=== PATIENT | female | born 1965 | race Caucasian/White ===

== ENCOUNTER 2017-10-11 12:07 | Emergency (ER) | payer BC ==
[2017-10-11 13:53] VITALS: BP 126/73
[2017-10-11] MEDS ORDERED: BSS OPTH.SOL* BTL OPHTHALMIC ONE (14:01)
[2017-10-11] MEDS ORDERED: Fluorescein Sodium TOPICAL* 1 MG TEST OPHTHALMIC ONE (14:01)
[2017-10-11] MEDS ORDERED: Fluorescein Sod TOPICAL 0.6* 0.6 MG TEST OPHTHALMIC ONE (14:04)
--- NOTE | 2017-10-11 14:14 | UC ---
Eye Complaint HPI - HPI Summary HPI Summary: grandson with viral conjunctivitis, and she has a history of dry eye--yesterday eye became irritated with slight erythema and "goopy drainage"--is leaving for vacation and wants to get it checked - History of Current Complaint Chief Complaint: UCEye Stated Complaint: LEFT EYE COMPLAINT Time Seen by Provider: 10/11/17 13:55 Hx Obtained From: Patient ?: No Onset/Duration: Sudden Onset Timing: Constant Severity Initially: Mild Pain Intensity: 0 Location of Injury: Conjunctiva Aggravating Factor(s): Nothing Alleviating Factor(s): Nothing Associated Signs And Symptoms: Positive: Drainage (Clear) - Allergies/Home Medications Allergies/Adverse Reactions: Allergies Allergy/AdvReac Type Severity Reaction Status Date / Time No Known Allergies Allergy Verified 10/11/17 13:45 Home Medications: Home Medications Cholecalciferol TAB* [Vitamin D TAB*] 1,000 unit PO DAILY 10/11/17 [History Confirmed 10/11/17] Dry Eye Drops 1 drop BOTH EYES DAILY 10/11/17 [History] Mineral Oil/Petrolatum,White [Refresh P.m. Ointment] 3.5 gm OP BEDTIME 10/11/17 [History Confirmed 10/11/17] Multivitamin [Multivitamins] 1 cap PO DAILY 10/11/17 [History Confirmed 10/11/17 ] PMH/Surg Hx/FS Hx/Imm Hx Previously Healthy: Yes - Surgical History Surgical History: Yes Surgery Procedure, Year, and Place: CYST REMOVED FROM NECK - Family History Known Family History: Positive: None - Social History Occupation: Employed Full-time Lives: With Family Alcohol Use: Occasionally Substance Use Type: None Smoking Status (MU): Never Smoked Tobacco Review of Systems Constitutional: Negative Skin: Negative Eyes: Negative, Drainage - left eye clear drainage, Eye Redness - minimal ENT: Negative Respiratory: Negative Cardiovascular: Negative Gastrointestinal: Negative Genitourinary: Negative Motor: Negative Neurovascular: Negative Musculoskeletal: Negative Neurological: Negative Psychological: Negative Is Patient Immunocompromised?: No All Other Systems Reviewed And Are Negative: Yes Physical Exam Triage Information Reviewed: Yes Appearance: Well-Appearing, No Pain Distress, Well-Nourished Vital Signs: Initial Vital Signs Temp 98.1 F 10/11/17 13:48 Pulse 75 10/11/17 13:48 Resp 16 10/11/17 13:48 BP 126/73 10/11/17 13:48 Pulse Ox 100 10/11/17 13:48 Vital Signs Reviewed: Yes Eye Exam: Normal Eyes: Positive: Conjunctiva Inflamed - minimal red, Discharge - scant clear ENT Exam: Normal ENT: Positive: Normal ENT inspection, Hearing grossly normal. Negative: Nasal congestion, Tonsillar swelling, Tonsillar exudate, Trismus, Muffled voice, Hoarse voice, Dental tenderness Dental Exam: Normal Neck exam: Normal Neck: Positive: Supple, Nontender Respiratory Exam: Normal Respiratory: Positive: Chest non-tender, No respiratory distress, No accessory muscle use Cardiovascular Exam: Normal Cardiovascular: Positive: RRR, Pulses Normal, Brisk Capillary Refill Musculoskeletal Exam: Normal Musculoskeletal: Positive: Strength Intact, ROM Intact, No Edema Neurological Exam: Normal Neurological: Positive: Alert, Muscle Tone Normal Psychological Exam: Normal Skin Exam: Normal Diagnostics - Laboratory Diagnostic Studies Completed/Ordered: eye stained-no dye uptake (to assure no abrasion or ulceration)as patient did use contacts prior to dryness started this week Eye Complaint Course/Dx - Course Course Of Treatment: no contact lens--polytrim eye drops --use usual medication for dry eye - Differential Dx/Diagnosis Provider Diagnoses: chronic dry eye os irratation Discharge - Discharge Plan Condition: Stable Disposition: HOME Prescriptions: Polymyx/Trimethoprim OPTH* [Polytrim OPHTH*] 1 drop LEFT EYE Q4H #1 btl Patient Education Materials: Conjunctivitis (ED) Referrals: Ruma Avila PA [Primary Care Provider] - If Needed
== END 2017-10-11 14:23 | disposition home or self-care (01) ==
LOC: UCCORT 12:07
DX: H04.122 Dry eye syndrome of left lacrimal gland (principal); H57.8 Other specified disorders of eye and adnexa
CPT/HCPCS: 99212; A9270-GY; G0463

== ENCOUNTER 2017-10-29 14:27 | Emergency (ER) | payer BC ==
[2017-10-29 14:49] VITALS: BP 102/72
--- NOTE | 2017-10-29 14:53 | UC ---
Complaint Female HPI - HPI Summary HPI Summary: Pt c/o sudden onset of urinary frequency, urgency and dysuria X 3 days. Pt took OTC azo this morning at 0900 - History Of Current Complaint Chief Complaint: UCGU Stated Complaint: URINARY COMPLAINT Time Seen by Provider: 10/29/17 14:46 Hx Obtained From: Patient ?: No Onset/Duration: Sudden Onset, Lasting Days, Still Present Timing: Constant Severity Initially: Mild Severity Currently: Mild Pain Intensity: 0 Character: Dull, Burning Aggravating Factor(s): Urination Alleviating Factor(s): Nothing Associated Signs And Symptoms: Positive: Negative - Allergies/Home Medications Allergies/Adverse Reactions: Allergies Allergy/AdvReac Type Severity Reaction Status Date / Time No Known Allergies Allergy Verified 10/29/17 14:47 Home Medications: Home Medications Cetirizine* [ZyrTEC 10 MG TAB*] 10 mg PO DAILY 10/29/17 [History Confirmed 10/29] PMH/Surg Hx/FS Hx/Imm Hx Previously Healthy: Yes - Surgical History Surgical History: Yes Surgery Procedure, Year, and Place: CYST REMOVED FROM NECK - Family History Known Family History: Positive: Cardiac Disease - Social History Occupation: Employed Full-time Lives: With Family Alcohol Use: Occasionally Substance Use Type: None Smoking Status (MU): Never Smoked Tobacco Have You Smoked in the Last Year: No Review of Systems Constitutional: Negative Skin: Negative Eyes: Negative ENT: Negative Respiratory: Negative Cardiovascular: Negative Gastrointestinal: Negative Genitourinary: Dysuria, Frequency, Urgency Motor: Negative Neurovascular: Negative Musculoskeletal: Negative Neurological: Negative Psychological: Negative Is Patient Immunocompromised?: No All Other Systems Reviewed And Are Negative: Yes Physical Exam Triage Information Reviewed: Yes Appearance: Well-Appearing Vital Signs: Initial Vital Signs Temp 98 F 10/29/17 14:45 Pulse 62 10/29/17 14:45 Resp 16 10/29/17 14:45 BP 102/72 10/29/17 14:45 Pulse Ox 98 10/29/17 14:45 Vital Signs Reviewed: Yes Eye Exam: Normal ENT Exam: Normal Dental Exam: Normal Neck exam: Normal Respiratory Exam: Normal Cardiovascular Exam: Normal Abdominal Exam: Normal Musculoskeletal Exam: Normal Neurological Exam: Normal Psychological Exam: Normal Skin Exam: Normal Complaint Female Dx - Course Course Of Treatment: Pt took AZO, unable to do UA. Urine sent for culture - Differential Dx/Diagnosis Differential Diagnosis/HQI/PQRI: Urinary Tract Infection Provider Diagnoses: Dysuria Discharge - Discharge Plan Condition: Stable Disposition: HOME Prescriptions: Cephalexin CAP* [Keflex 500 CAP*] 500 mg PO TID #21 cap Patient Education Materials: Dysuria (ED) Referrals: Ruma Avila PA [Primary Care Provider] - If Needed
== END 2017-10-29 15:04 | disposition home or self-care (01) ==
LOC: UCCORT 14:27
DX: R30.0 Dysuria (principal)
CPT/HCPCS: 87077; 87086; 87186; 99212; G0463

== ENCOUNTER 2017-11-27 18:02 | Emergency (ER) | payer BC ==
--- NOTE | 2017-11-27 18:40 | UC ---
Throat Pain/Nasal Rafita HPI - HPI Summary HPI Summary: 51 year old female with sore throat. ONSET YESTERDAY CHILLS, FEVERISH, SORE THROAT, VOMITING. Had bodyaches start yesterday at school at 1330 and they have continued. no SOB. no CP. [ End ] - History of Current Complaint Stated Complaint: SORE THROAT/FEVER Time Seen by Provider: 11/27/17 18:36 Hx Obtained From: Patient Onset/Duration: Sudden Onset Cough: Nonproductive - Allergies/Home Medications Allergies/Adverse Reactions: Allergies Allergy/AdvReac Type Severity Reaction Status Date / Time No Known Allergies Allergy Verified 11/27/17 18:41 Home Medications: Home Medications Acetaminophen [Tylenol Extra Strength] 1,000 mg PO Q6H PRN 11/27/17 [History Confirmed 11/27/17] PMH/Surg Hx/FS Hx/Imm Hx Previously Healthy: Yes - Surgical History Surgical History: Yes Surgery Procedure, Year, and Place: CYST REMOVED FROM NECK - Family History Known Family History: Positive: Cardiac Disease - Social History Occupation: Employed Full-time - teacher Alcohol Use: Occasionally Substance Use Type: None Smoking Status (MU): Never Smoked Tobacco Have You Smoked in the Last Year: No Review of Systems Constitutional: Fever, Chills, Fatigue ENT: Sore Throat Musculoskeletal: Myalgia Is Patient Immunocompromised?: No All Other Systems Reviewed And Are Negative: Yes Physical Exam Triage Information Reviewed: Yes Appearance: Well-Appearing, No Pain Distress, Well-Nourished Vital Signs Reviewed: Yes Eye Exam: Normal ENT Exam: Normal Dental Exam: Normal Neck exam: Normal Neck: Positive: 1 Respiratory Exam: Normal Cardiovascular Exam: Normal Musculoskeletal Exam: Normal Neurological Exam: Normal Psychological Exam: Normal Skin Exam: Normal Throat Pain/Nasal Course/Dx - Course Course Of Treatment: neg flu. viral illness. supportive treatment - Differential Dx/Diagnosis Differential Diagnosis/HQI/PQRI: Laryngitis, Peritonsillar Abscess, Pharyngitis , Sinusitis, Tonsillitis Provider Diagnoses: flu like illness Discharge - Sign-Out/Discharge Documenting (check all that apply): Discharge - Discharge Plan Condition: Good Disposition: HOME Patient Education Materials: Upper Respiratory Infection (ED) Referrals: Ruma Avila PA [Primary Care Provider] - 4 Days Additional Instructions: You had a negative flu test today . Feel better! - Billing Disposition and Condition Condition: GOOD Disposition: HOME
[2017-11-27 18:48] VITALS: BP 97/63
== END 2017-11-27 19:32 | disposition home or self-care (01) ==
LOC: UCCORT 18:02
DX: J11.1 Influenza due to unidentified influenza virus with other respiratory manifestations (principal)
CPT/HCPCS: 87502; 99211; G0463

== ENCOUNTER 2017-11-29 09:24 | Emergency (ER) | payer BC ==
[2017-11-29 10:11] VITALS: BP 109/76
--- NOTE | 2017-11-29 10:26 | UC ---
Respiratory Complaint HPI - HPI Summary HPI Summary: 52 year old female with sore throat, vomiting and flu like illness. SEEN HERE FRIDAY NIKKI , FOR URI, NEGATIVE FLU. NEXT DAY SORE THROAT AND VOMITING STARTED. NOT ABLE TO KEEP FLUIDS DOWN. DID TOLERATE A GLASS OF WATER AND POPSICLE THIS MORNING WITH OUT VOMITING. NO FEVER SHE IS AWARE OF RECENTLY. NO DIARRHEA. FEELS WEAK AND LIGHTHEADED. [ End ] - History of Current Complaint Chief Complaint: UCGeneralIllness Stated Complaint: ST,VOMITING Time Seen by Provider: 11/29/17 10:24 Hx Obtained From: Patient, Family/Obgyn Specialist Onset/Duration: Gradual Onset Timing: Constant Severity Currently: Moderate Pain Intensity: 8 Character: Cough: Nonproductive Associated Signs And Symptoms: Positive: Dizziness, Nasal Congestion - Allergies/Home Medications Allergies/Adverse Reactions: Allergies Allergy/AdvReac Type Severity Reaction Status Date / Time No Known Allergies Allergy Verified 11/29/17 10:01 Home Medications: Home Medications Erythromycin OPTH OINT* [Erythromycin 0.5% OPTH OINT*] 1 applic LEFT EYE TID 03/11 [History Confirmed 11/29/17] PMH/Surg Hx/FS Hx/Imm Hx Previously Healthy: Yes Endocrine History: Dyslipidemia - Surgical History Surgical History: Yes Surgery Procedure, Year, and Place: CYST REMOVED FROM NECK - Family History Known Family History: Positive: None, Cardiac Disease - Social 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 Alcohol Use: Occasionally Substance Use Type: None Smoking Status (MU): Never Smoked Tobacco Have You Smoked in the Last Year: No Review of Systems Constitutional: Fever, Chills, Fatigue ENT: Sore Throat Gastrointestinal: Nausea Musculoskeletal: Myalgia Is Patient Immunocompromised?: No All Other Systems Reviewed And Are Negative: Yes Physical Exam Triage Information Reviewed: Yes Appearance: Well-Appearing, No Pain Distress, Well-Nourished Vital Signs: Initial Vital Signs Temp 98.4 F 11/29/17 10:03 Pulse 69 11/29/17 10:03 Resp 16 11/29/17 10:03 BP 109/76 11/29/17 10:03 Pulse Ox 99 11/29/17 10:03 Vital Signs Reviewed: Yes Eye Exam: Normal ENT Exam: Normal ENT: Positive: Pharyngeal erythema, Nasal congestion, TM dull, Tonsillar exudate , Hoarse voice Dental Exam: Normal Neck exam: Normal Neck: Positive: 1 Respiratory Exam: Normal Cardiovascular Exam: Normal Musculoskeletal Exam: Normal Neurological Exam: Normal Psychological Exam: Normal Skin Exam: Normal UC Diagnostic Evaluation - Laboratory O2 Sat by Pulse Oximetry: 99 Respiratory Course/Dx - Course Course Of Treatment: asked for liquid amox. anti nausea meds given here and to go home with. change toothbrush. push fluids. to go to ED if Sx persist or worsen for hydration. patient and aware and agree to plan - Differential Dx/Diagnosis Differential Diagnosis/HQI/PQRI: Bronchitis, Influenza, Laryngitis, Lower Resp Infection, Sinusitis Provider Diagnoses: Strep throat Discharge - Sign-Out/Discharge Documenting (check all that apply): Discharge - Discharge Plan Condition: Good Disposition: HOME Prescriptions: Amoxicillin PO (*) [Amoxicillin 400 MG/5 ML SUSP*] 500 mg PO BID 10 Days #1 bottle Ondansetron ODT TAB* [Zofran 4 MG Odt TAB*] 4 mg PO Q6H PRN 10 Days #20 tab.odt PRN Reason: Nausea Patient Education Materials: Strep Throat (ED) Forms: *Work Release Referrals: Ruma Avila PA [Primary Care Provider] - 4 Days Additional Instructions: You are to use Amoxicillin liquid at this time for your (+) strep testing and also you are given an anti-nausea medication . - Billing Disposition and Condition Condition: GOOD Disposition: HOME
[2017-11-29] MEDS ORDERED: Ondansetron ODT TAB* 4 MG PO ONE (10:28)
== END 2017-11-29 10:51 | disposition home or self-care (01) ==
LOC: UCCORT 09:24
DX: J02.0 Streptococcal pharyngitis (principal)
CPT/HCPCS: 87651; 99212; A9270-GY; G0463

== ENCOUNTER 2018-04-19 15:36 | Emergency (ER) | payer BC ==
[2018-04-19 17:08] VITALS: BP 103/72
[2018-04-19] MEDS ORDERED: Nitrofurantoin Macrocrystals* 50 MG CAP PO ONE (17:54)
--- NOTE | 2018-04-19 18:01 | UC ---
Complaint Female HPI - HPI Summary HPI Summary: 52 year old female presents with 2 day history of dysuria and frequency. Denies fever, chills, back/flank pain, abdominal pain, nausea, vomiting, or vaginal discharge/bleeding. Taking OTC Azo for symptom relief. - History Of Current Complaint Chief Complaint: UCGU Stated Complaint: UTI SYMPTOMS Time Seen by Provider: 04/19/18 17:32 Hx Obtained From: Patient Onset/Duration: Gradual Onset, Lasting Days - 2 Timing: Intermittent Severity Initially: Mild Severity Currently: Mild Pain Intensity: 0 Character: Burning Aggravating Factor(s): Urination Alleviating Factor(s): Meds Associated Signs And Symptoms: Positive: Negative - Allergies/Home Medications Allergies/Adverse Reactions: Allergies Allergy/AdvReac Type Severity Reaction Status Date / Time No Known Allergies Allergy Verified 04/19/18 17:07 Home Medications: Home Medications Azo Urinary Pain Relief 2 tab DAILY PRN 04/19/18 [History Confirmed 04/19/18] PMH/Surg Hx/FS Hx/Imm Hx - Additional Past Medical History Additional PMH: noncontributory - Surgical History Surgical History: Yes Surgery Procedure, Year, and Place: CYST REMOVED FROM NECK - Family History Known Family History: Positive: Cardiac Disease - Social History Occupation: Employed Full-time Lives: With Family Alcohol Use: Occasionally Alcohol Amount: ONCE A MONTH Substance Use Type: None Smoking Status (MU): Never Smoked Tobacco Have You Smoked in the Last Year: No Review of Systems Constitutional: Negative Gastrointestinal: Negative Genitourinary: Dysuria, Frequency Is Patient Immunocompromised?: No All Other Systems Reviewed And Are Negative: Yes Physical Exam Triage Information Reviewed: Yes Appearance: Well-Appearing, No Pain Distress, Well-Nourished Vital Signs: Initial Vital Signs Temp 98.8 F 04/19/18 17:01 Pulse 72 04/19/18 17:01 Resp 16 04/19/18 17:01 BP 103/72 04/19/18 17:01 Pulse Ox 100 04/19/18 17:01 Vital Signs Reviewed: Yes Respiratory: Positive: Lungs clear, Normal breath sounds, No respiratory distress Cardiovascular: Positive: RRR, No Murmur Abdomen Description: Positive: Nontender, No Organomegaly, Soft. Negative: CVA Tenderness (R), CVA Tenderness (L) Neurological: Positive: Alert Skin Exam: Normal Complaint Female Dx - Course Course Of Treatment: 52 year old female with 2 day history of symptoms consistent with UTI. She has been self-treating with OTC Azo therefore was unable to perform POC UA. Will treat empirically with Bactrim DS 1 tab BID x 5 days pending urine culture results. She has been instructed to stop Azo after 2 days on antibiotics. - Differential Dx/Diagnosis Provider Diagnoses: acute urinary cystits Discharge - Sign-Out/Discharge Documenting (check all that apply): Patient Departure All imaging exams completed and their final reports reviewed: No Studies - Discharge Plan Condition: Stable Disposition: HOME Prescriptions: Sulfamethox/Trimethoprim DS* [Bactrim DS 800/160 TAB*] 1 tab PO BID #9 tab Patient Education Materials: Urinary Tract Infection in Women (ED) Referrals: Ruma Avila PA [Primary Care Provider] - If Needed Additional Instructions: Your symptoms are suspicious for a urinary tract infection. We were unable to test the urine because of the Azo however we will start your on an antibiotic and send the urine for culture. We will contact you in 2-3 days if there is a need to change your treatment. You were given a dose of Bactrim DS 1 tab in the clinic and a prescription for Bactrim DS 1 tab orally twice daily for 5 days was sent to the pharmacy to start tomorrow. You may continue to use the Azo for 2 more days then stop. Your symptoms should be better after being on the antibiotic for 48-72 hours and we do not want to mask symptoms of a untreated or under-treated infection. Drink plenty of fluids. Follow up with your primary care provider if symptoms do not improve. Seek immediate medical attention if you develop fever greater than 100.5 F, have severe abdominal pain, persistent vomiting, or any worsening of symptoms. - Billing Disposition and Condition Condition: STABLE Disposition: Home
[2018-04-19] MEDS ORDERED: Sulfamethox/Trimethoprim DS 800/160* TAB PO ONE (18:05)
== END 2018-04-19 18:22 | disposition home or self-care (01) ==
LOC: UCCORT 15:36
DX: N30.00 Acute cystitis without hematuria (principal)
CPT/HCPCS: 87077; 87086; 87186; 99212; A9270-GY; G0463

== ENCOUNTER 2019-03-28 08:43 | Emergency (ER) | payer BC ==
[2019-03-28 08:53] VITALS: BP 110/74
--- NOTE | 2019-03-28 09:20 | UC ---
Complaint Female HPI - HPI Summary HPI Summary: 53 year old female presents with dysuria, urgency and frequency that started this morning. - History Of Current Complaint Chief Complaint: UCGU Stated Complaint: URINARY COMPLAINT Time Seen by Provider: 03/28/19 09:09 Hx Obtained From: Patient Onset/Duration: Sudden Onset, Lasting Hours Pain Intensity: 0 Character: Burning Aggravating Factor(s): Urination Associated Signs And Symptoms: Negative: Fever, Back Pain, Nausea Related Hx: Prior STD Hx - last episode a couple of years ago. - Allergies/Home Medications Allergies/Adverse Reactions: Allergies Allergy/AdvReac Type Severity Reaction Status Date / Time No Known Allergies Allergy Verified 03/28/19 08:49 Home Medications: Home Medications Magnesium Oxide [Magnesium] 400 mg PO DAILY 03/28/19 [History Confirmed 03/28/19 ] PMH/Surg Hx/FS Hx/Imm Hx Previously Healthy: Yes - Surgical History Surgical History: Yes Surgery Procedure, Year, and Place: CYST REMOVED FROM NECK - Family History Known Family History: Positive: None, Cardiac Disease - Social History Alcohol Use: Occasionally Alcohol Amount: ONCE A MONTH Substance Use Type: None Smoking Status (MU): Never Smoked Tobacco Have You Smoked in the Last Year: No Review of Systems All Other Systems Reviewed And Are Negative: Yes Constitutional: Negative: Fever, Chills, Fatigue Skin: Negative: Rash Eyes: Negative: Eye Redness ENT: Negative: Sore Throat Respiratory: Negative: Shortness Of Breath, Cough Cardiovascular: Negative: Palpitations, Chest Pain Gastrointestinal: Negative: Abdominal Pain, Vomiting, Diarrhea, Nausea Genitourinary: Positive: Dysuria, Frequency, Urgency. Negative: Hematuria, Vaginal/Penile Burning, Vaginal/Penile Itching, Vaginal/Penile Discharge Motor: Positive: Negative Neurovascular: Positive: Negative Musculoskeletal: Positive: Negative Neurological: Positive: Negative Psychological: Positive: Negative Is Patient Immunocompromised?: No Physical Exam Triage Information Reviewed: Yes Appearance: Well-Appearing, No Pain Distress, Well-Nourished Vital Signs: Initial Vital Signs Temp 98.6 F 03/28/19 08:49 Pulse 60 03/28/19 08:49 Resp 14 03/28/19 08:49 BP 110/74 03/28/19 08:49 Pulse Ox 100 03/28/19 08:49 Eyes: Positive: Conjunctiva Clear ENT: Positive: Normal ENT inspection Neck: Positive: Supple, Nontender, No Lymphadenopathy Respiratory: Positive: Lungs clear, Normal breath sounds Cardiovascular: Positive: RRR, No Murmur Abdomen Description: Positive: Nontender, Soft. Negative: CVA Tenderness (R), CVA Tenderness (L), Distended, Guarding Musculoskeletal: Positive: Strength Intact Neurological: Positive: Alert Skin: Negative: Rashes Complaint Female Dx - Differential Dx/Diagnosis Provider Diagnosis: Urinary tract infection Discharge - Sign-Out/Discharge Documenting (check all that apply): Patient Departure All imaging exams completed and their final reports reviewed: No Studies - Discharge Plan Condition: Stable Disposition: HOME Prescriptions: Cephalexin CAP* [Keflex CAP*] 500 mg PO BID 7 Days #14 cap Patient Education Materials: Urinary Tract Infection in Women (ED) Referrals: Macey Mauro NP [Primary Care Provider] - Additional Instructions: Drink plenty of water, take antibiotic as ordered. Follow up with physician or urgent care if symptoms persist or if fever develops, back pain or other concerns. - Billing Disposition and Condition Condition: STABLE Disposition: Home
== END 2019-03-28 09:25 | disposition home or self-care (01) ==
LOC: UCCORT 08:43
DX: N39.0 Urinary tract infection, site not specified (principal)
CPT/HCPCS: 81003; 87086; 99212; G0463